=== PATIENT | male | born 1950 | race Caucasian/White ===

== ENCOUNTER 2024-06-07 13:36 | Emergency (ER) | payer MEDICARE, OTHER ==
[~2024-06-07] VITALS: Ht 182.9 cm; Wt 105.7 kg
[2024-06-07 15:13] VITALS: TEMP 97.6
[2024-06-07] MEDS ORDERED: CEPHALEXIN MONOHYDRATE 500 MG CAPSULE PO ONE (15:51)
[2024-06-07] MEDS: CEPHALEXIN MONOHYDRATE 500 MG CAPSULE PO ONE (15:51)
[2024-06-07] MEDS ORDERED: IBUPROFEN 600 MG TABLET ONE (15:51)
[2024-06-07] MEDS ORDERED: CEPH500C2 PO (15:52)
[2024-06-07] MEDS: IBUPROFEN 600 MG TABLET PO ONE (15:52)
[2024-06-07 16:13] VITALS: BP 132/76; O2SAT 98
== END 2024-06-07 16:15 | disposition home or self-care (01) ==
LOC: ER 13:48
DX: L03.116 Cellulitis of left lower limb (principal); L03.115 Cellulitis of right lower limb; M79.671 Pain in right foot
CPT/HCPCS: 73630-TC